=== PATIENT | female | born 1970 | race Native Hawaiian/Other Pacific Islander ===

== ENCOUNTER → 2016-09-10 | Outpatient (REF) | payer OTHER ==
[~2016-09-10] MED LIST: AUGM875T27 PO; CELE20TA OR; CELE40TA OR; COLA50CA3 PO; LISI10TA4 OR; MULTIVIT PO; NEXI20GR PO; OXYC-208 PO; vitamin C
== END ==
LOC: M SFHCLERA 13:34
PROVIDERS: ATTEND Family Medicine
DX: R35.0 Frequency of micturition (principal)

== ENCOUNTER → 2016-09-11 | Outpatient (CLI) | payer OTHER ==
--- NOTE | 2016-09-11 16:24 | REP ---
Urinary tract sonogram: History: Frequent urination, low back pain. Comparison: No comparison study. Findings: Scanning at the level of the urinary bladder shows no abnormality. Pre void bladder volume is calculated at 232 ml. Postvoid residual is 11 ml, 5%. Emptying ureteral jets are observed on color Doppler interrogation of the bladder lumen bilaterally. Renal cortical echogenicity pattern is normal bilaterally and contours are smooth. There is no evidence of hydronephrosis, cyst, mass, or calculus in either kidney. The right kidney measures 10.9 x 6.0 x 4.4 cm. Left renal dimensions are 13.7 x 5.4 x 4.5 cm. Impression: Normal urinary tract sonography. Signed by Jorge Millan MD 09/11/2016 04:15 P
== END ==
LOC: M RAD 15:25
PROVIDERS: ATTEND Family Medicine
DX: R35.0 Frequency of micturition (principal); M54.5 Low back pain; N39.46 Mixed incontinence

== ENCOUNTER → 2016-11-05 | Outpatient (CLI) | payer OTHER | LOC: M LAB 14:34 | PROVIDERS: ATTEND Family Medicine | DX: Z11.4 Encounter for screening for human immunodeficiency virus [HIV] (principal) ==

== ENCOUNTER → 2016-12-10 | Outpatient (REF) | payer OTHER | LOC: M SMT 12:47 | PROVIDERS: ATTEND Nurse Practitioner Women's Health | DX: R30.9 Painful micturition, unspecified (principal) ==

== ENCOUNTER → 2016-12-30 | Outpatient (CLI) | payer OTHER ==
[~2016-12-30] MED LIST changes: +ALBU17IN2 INH; +AVEL1TAB PO; +DIVA500T3; +GABA600T; +HYDR200T3; +METO-346; +MONT10TA2; +OXYB10TA; +TESS100C PO
--- NOTE | 2016-12-30 16:45 | REP ---
Clinical: Acute cough . Comparison: 08/04/2012 . Technique: PA and lateral. Findings: The mediastinum and cardiac silhouette are normal. The lung maya are clear and without acute consolidation, effusion, or pneumothorax. The skeletal structures are intact and normal. Impression: No acute cardiopulmonary process. If the patient remains symptomatic consider chest CT for further investigation. Signed by Hilario Bal MD 12/30/2016 04:37 P
== END ==
LOC: M LRY 15:43
PROVIDERS: ATTEND Physician Assistant
DX: R05 Cough (principal)

== ENCOUNTER 2017-01-03 09:23 | Emergency (ER) | payer OTHER ==
[~2017-01-03] VITALS: Ht 154.9 cm; Wt 52.6 kg
[~2017-01-03 09:23] MED LIST changes: -ALBU17IN2 INH; -AVEL1TAB PO; -DIVA500T3; -GABA600T; -HYDR200T3; -METO-346; -MONT10TA2; -OXYB10TA; -TESS100C PO
[2017-01-03 09:24] VITALS: BP 145/81
[2017-01-03] MEDS ORDERED: MONT10TA2 (09:35)
[2017-01-03] MEDS ORDERED: OXYB10TA (09:35)
[2017-01-03] MEDS ORDERED: HYDR200T3 (09:35)
[2017-01-03] MEDS ORDERED: METO-346 (09:35)
[2017-01-03] MEDS ORDERED: GABA600T (09:35)
[2017-01-03] MEDS ORDERED: DIVA500T3 (09:35)
[2017-01-03] MEDS ORDERED: TESS100C PO (09:55)
[2017-01-03] MEDS ORDERED: AVEL1TAB PO (09:55)
[2017-01-03] MEDS ORDERED: ALBU17IN2 INH (09:55)
[2017-01-03] MEDS ORDERED: ACETAMINOPHEN 325 MG TAB PO ONE (10:00)
[2017-01-03] MEDS ORDERED: BENZONATATE 100 MG CAP PO ONE (10:00)
== END 2017-01-03 10:11 | disposition home or self-care (01) ==
LOC: M ED 09:54
DX: J20.9 Acute bronchitis, unspecified (principal); I10 Essential (primary) hypertension; Z90.89 Acquired absence of other organs; Z88.8 Allergy status to other drugs, medicaments and biological substances

== ENCOUNTER → 2017-02-10 | Outpatient (CLI) | payer OTHER ==
[~2017-02-10] MED LIST changes: +ALBU17IN2 INH; +AVEL1TAB3 PO; +DIVA500T3; +GABA600T; +HYDR200T3; +METO-346; +MONT10TA2; +OXYB10TA; +TESS100C PO
[2017-02-10 06:40] LABS: BASO % 0.2 % (0.0-1.0); EOS # 0.4 K/mm3 (0.0-0.50); LARGE UNSTAINED CELL # 0.1 K/mm3 (0.0-0.4); LARGE UNSTAINED CELL % 1.1 % (0.0-4.0); LYMPH # 2.3 K/mm3 (1.5-4.5); LYMPH % 24.2 % (24.0-44.0); MEAN CORPUSCULAR HEMOGLOBIN 19.1 pg (27.0-33.0); MEAN CORPUSCULAR HGB CONC 28.1 g/dl (32.0-36.5); MEAN CORPUSCULAR VOLUME 67.8 fl (80.0-96.0); MONO # 0.3 K/mm3 (0.0-0.8); MONO % 3.5 % (0.0-5.0); NEUTROPHILS # 6.1 K/mm3 (1.8-7.7); NEUTROPHILS % 66.9 % (36.0-66.0); PLATELET COUNT, AUTOMATED 200 k/mm3 (150-450); RED CELL DISTRIBUTION WIDTH 20.8 % (11.5-14.5); WHITE BLOOD COUNT 9.1 K/mm3 (4.0-10.0)
[2017-02-10 06:41] LABS: ADD MORPHOLOGY? YES
[2017-02-10 09:01] LABS: ANISOCYTOSIS 2+; MICROCYTOSIS 2+; POLYCHROMASIA 1+
== END ==
LOC: M LAB 06:21
PROVIDERS: ATTEND Internal Medicine Medical Oncology
DX: D75.1 Secondary polycythemia (principal)

== ENCOUNTER → 2017-05-03 | Outpatient (CLI) | payer OTHER ==
--- NOTE | 2017-05-04 02:52 | REP ---
Clinical: Anterior knee pain Technique: AP, lateral, bilateral oblique and sunrise views right knee . Findings: The osseous structures and joint spaces are intact and normal. There is no evidence for acute fracture or dislocation. No joint effusion is appreciated. Surrounding soft tissues are unremarkable. No subcutaneous emphysema or radiodense foreign body. Impression: Normal examination. No acute fracture or dislocation. Signed by Hilario Bal MD 05/04/2017 02:43 A
== END ==
LOC: M LRY 12:22
PROVIDERS: ATTEND Family Medicine
DX: M25.562 Pain in left knee (principal)

== ENCOUNTER → 2017-05-05 | Outpatient (CLI) | payer OTHER | LOC: M LAB 08:32 | PROVIDERS: ATTEND Family Medicine | DX: Z13.1 Encounter for screening for diabetes mellitus (principal); Z13.220 Encounter for screening for lipoid disorders ==

== ENCOUNTER 2017-06-15 07:00 | Outpatient (RCR) | payer OTHER | END 2017-07-08 | LOC: M PT 07:00 | PROVIDERS: ATTEND Family Medicine | DX: Z51.89 Encounter for other specified aftercare (principal); M25.562 Pain in left knee ==

== ENCOUNTER → 2017-06-21 | Outpatient (CLI) | payer OTHER ==
[2017-06-21 07:57] LABS: MEAN CORPUSCULAR HEMOGLOBIN 16.4 pg (27.0-33.0); PLATELET COUNT, AUTOMATED 284 10^3/uL (150-450); RED CELL DISTRIBUTION WIDTH 24.1 % (11.5-14.5); WHITE BLOOD COUNT 7.4 10^3/uL (4.0-10.0)
[2017-06-21 08:11] LABS: ADD MANUAL DIFFER YES; DIFF SLIDE NUMBER 124; LEFT SHIFT POS FLAG; PLT DIST POS FLAG; POSITIVE MORPH POS FLAG
[2017-06-21 08:20] LABS: ALBUMIN 3.5 GM/DL (3.2-5.2); ALKALINE PHOSPHATASE 96 U/L (45-117); ALT/SGPT 23 U/L (12-78); ANION GAP 6 MEQ/L (8-16); AST/SGOT 22 U/L (7-37); BILIRUBIN,TOTAL 0.6 MG/DL (0.2-1.0); BLOOD UREA NITROGEN 8 MG/DL (7-18); CALCIUM LEVEL 8.2 MG/DL (8.5-10.1); CARBON DIOXIDE LEVEL 28 MEQ/L (21-32); CHLORIDE LEVEL 105 MEQ/L (98-107); CREATININE FOR GFR 0.63 MG/DL (0.55-1.02); GAMMA GLUTAMYLTRANSPEPTIDASE 23 U/L (5-55); GLOMERULAR FILTRATION RATE > 60.0 (>58); GLUCOSE, FASTING 80 MG/DL (70-105); POTASSIUM SERUM 3.9 MEQ/L (3.5-5.1); SODIUM LEVEL 139 MEQ/L (136-145); TOTAL PROTEIN 7.9 GM/DL (6.4-8.2)
[2017-06-21 09:06] LABS: BANDS 5 % (< 11); EOSINOPHILS 4 % (0-5)
[2017-06-21 09:07] LABS: HYPOCHROMASIA 2+; MICROCYTOSIS 3+; POIKILOCYTOSIS 1+
[2017-06-21 09:09] LABS: POLYCHROMASIA 1+
== END ==
LOC: M LAB 07:29
PROVIDERS: ATTEND Internal Medicine Medical Oncology
DX: D45 Polycythemia vera (principal)

== ENCOUNTER → 2017-07-22 | Outpatient (REF) | payer OTHER ==
[2017-07-22 21:13] LABS: ALBUMIN 4.4 GM/DL (3.2-5.2); ALBUMIN/GLOBULIN RATIO 0.88 (1.00-1.93); ALKALINE PHOSPHATASE 116 U/L (45-117); ALT/SGPT 25 U/L (12-78); ANION GAP 6 MEQ/L (8-16); AST/SGOT 22 U/L (7-37); BILIRUBIN,TOTAL 0.8 MG/DL (0.2-1.0); BLOOD UREA NITROGEN 9 MG/DL (7-18); CALCIUM LEVEL 8.7 MG/DL (8.5-10.1); CARBON DIOXIDE LEVEL 31 MEQ/L (21-32); CHLORIDE LEVEL 101 MEQ/L (98-107); CREATININE FOR GFR 0.55 MG/DL (0.55-1.02); FREE T4 1.18 NG/DL (0.76-1.46); GLOMERULAR FILTRATION RATE > 60.0 (>58); GLUCOSE, FASTING 85 MG/DL (70-105); SODIUM LEVEL 138 MEQ/L (136-145); TOTAL PROTEIN 9.4 GM/DL (6.4-8.2)
== END ==
LOC: M SFHCLERA 14:36
PROVIDERS: ATTEND Family Medicine
DX: R59.0 Localized enlarged lymph nodes (principal)

== ENCOUNTER → 2017-07-26 | Outpatient (CLI) | payer OTHER ==
--- NOTE | 2017-07-27 03:15 | REP ---
Clinical: Suspected adenopathy. Technique: Real time francis scale and color evaluation using linear high frequency transducer. Findings: Directed ultrasound examination in the region of palpable mass in the submandibular level identifies a heterogeneous submandibular gland with anechoic focus measuring 12 x 5 x 9 mm corresponding to the upper pole mass along with few scattered lymph nodes measuring up to 15 mm. Impression: Palpable mass corresponds to anechoic area inseparable from the submandibular gland which may in fact represent an adjacent lymph node. Consider contrast enhanced CT of the neck if symptoms continue greater than 2-3 weeks. Signed by Hilario Bal MD 07/27/2017 12:06 A
== END ==
LOC: M RAD 17:00
PROVIDERS: ATTEND Family Medicine
DX: R59.0 Localized enlarged lymph nodes (principal)

== ENCOUNTER → 2017-08-06 | Outpatient (CLI) | payer OTHER ==
[2017-08-06 16:39] LABS: ALBUMIN 3.9 GM/DL (3.2-5.2); ALKALINE PHOSPHATASE 97 U/L (45-117); ALT/SGPT 24 U/L (12-78); ANION GAP 7 MEQ/L (8-16); AST/SGOT 26 U/L (7-37); BILIRUBIN,TOTAL 0.7 MG/DL (0.2-1.0); BLOOD UREA NITROGEN 9 MG/DL (7-18); CALCIUM LEVEL 9.1 MG/DL (8.5-10.1); CARBON DIOXIDE LEVEL 30 MEQ/L (21-32); CHLORIDE LEVEL 103 MEQ/L (98-107); CREATININE FOR GFR 0.53 MG/DL (0.55-1.02); GLOMERULAR FILTRATION RATE > 60.0 (>58); GLUCOSE, FASTING 77 MG/DL (70-105); POTASSIUM SERUM 4.3 MEQ/L (3.5-5.1); SODIUM LEVEL 140 MEQ/L (136-145); TOTAL PROTEIN 8.8 GM/DL (6.4-8.2)
== END ==
LOC: M LAB 15:38
DX: I10 Essential (primary) hypertension (principal)
CPT/HCPCS: 80053

== ENCOUNTER → 2017-08-10 | Outpatient (CLI) | payer OTHER ==
[~2017-08-10] MED LIST changes: -ALBU17IN2 INH; -AUGM875T27 PO; -AVEL1TAB3 PO; -CELE20TA OR; -CELE40TA OR; -COLA50CA3 PO; -DIVA500T3; -GABA600T; -HYDR200T3; +ISOVUE-370 76% 100ML VIAL (Q9967) As Ordered; -LISI10TA4 OR; -METO-346; -MONT10TA2; -MULTIVIT PO; -NEXI20GR PO; -OXYB10TA; -OXYC-208 PO; -TESS100C PO; -vitamin C
== END ==
LOC: M RAD 07:35
DX: R22.0 Localized swelling, mass and lump, head (principal)
CPT/HCPCS: Q9967

== ENCOUNTER → 2017-08-13 | Outpatient (CLI) | payer OTHER ==
[2017-08-13 09:40] LABS: TOTAL PROTEIN 8.7 GM/DL (6.4-8.2)
[2017-08-16 13:21] LABS: ALBUMIN % 48.6 % (55.8-66.1); ALPHA-1-GLOBULIN % 3.3 % (2.9-4.9); ALPHA-2-GLOBULINS % 6.7 % (7.1-11.8); BETA-1-GLOBULINS % 5.4 % (4.7-7.2)
[2017-08-16 13:22] LABS: ALBUMIN 4.23 GM/DL (3.29-5.55); ALPHA-1-GLOBULINS 0.29 GM/DL (0.17-0.41); ALPHA-2-GLOBULINS 0.58 GM/DL (0.42-0.99); BETA-1-GLOBULINS 0.47 GM/DL (0.28-0.60); BETA-2-GLOBULINS 0.43 GM/DL (0.19-0.55); BETA-2-GLOBULINS % 4.9 % (3.2-6.5); GAMMA GLOBULIN % 31.1 % (11.1-18.8); GAMMA GLOBULINS 2.71 GM/DL (0.65-1.58)
== END ==
LOC: M LAB 08:40
DX: R77.8 Other specified abnormalities of plasma proteins (principal)
CPT/HCPCS: 84165

== ENCOUNTER → 2017-08-30 | Outpatient (CLI) | payer OTHER | LOC: M LAB 18:28 | DX: I10 Essential (primary) hypertension (principal) | CPT/HCPCS: 84244 ==

== ENCOUNTER → 2017-09-01 | Outpatient (REF) | payer OTHER ==
[2017-09-01 18:35] LABS: CREATININE, URINE 58.8 MG/DL; MALB URINE SIEMENS 6.5 MG/L
[2017-09-07 00:07] LABS: DOPAMINE 259 ug/24 hr (0-510); DOPAMINE TOTAL URINE 148 ug/L (Undefined); EPINEPHRINE 4 ug/24 hr (0-20); EPINEPHRINE TOTAL URINE 2 ug/L (Undefined); METANEPHRINE TOTAL URINE 75 ug/L (Undefined); METANEPHRINE URINE 131 ug/24 hr (45-290); NOREPINEPHRINE 23 ug/24 hr (0-135); NOREPINEPHRINE TOTAL URINE 13 ug/L (Undefined); NORMETANEPHRINE TOTAL URINE 138 ug/L (Undefined); NORMETANEPHRINE URINE 242 ug/24 hr (82-500)
== END ==
LOC: M LAB REF 11:22
DX: I10 Essential (primary) hypertension (principal)
CPT/HCPCS: 82384

== ENCOUNTER → 2018-06-09 | Outpatient (REF) | payer OTHER ==
[2018-06-09 19:45] LABS: HEMATOCRIT 54.1 % (36.0-47.0); HEMOGLOBIN 14.1 g/dl (12.0-15.5); MEAN CORPUSCULAR HGB CONC 26.1 g/dl (32.0-36.5); MEAN CORPUSCULAR VOLUME 65.2 fl (80.0-96.0); PLATELET COUNT, AUTOMATED 245 10^3/uL (150-450); WHITE BLOOD COUNT 11.6 10^3/uL (4.0-10.0)
[2018-06-09 19:51] LABS: ADD MANUAL DIFFER YES; DIFF SLIDE NUMBER 297; POSITIVE MORPH POS FLAG
[2018-06-09 20:14] LABS: ATYPICAL LYMPH 16 % (0-5); BANDS 4 % (< 11); EOSINOPHILS 4 % (0-5); LYMPHOCYTES 8 % (16-52); METAMYELOCYTES 1 % (0-0); MONOCYTES 3 % (0-8); NEUTROPHILS 64 % (35-75); NUCLEATED RED BLOOD CELL 1 % (0-0); PLATELET ESTIMATE NORMAL (NORMAL)
[2018-06-09 20:15] LABS: MICROCYTOSIS 2+; POLYCHROMASIA 1+
[2018-06-09 20:24] LABS: ALBUMIN/GLOBULIN RATIO 0.71 (1.00-1.93); ALKALINE PHOSPHATASE 132 U/L (45-117); ALT/SGPT 24 U/L (12-78); ANION GAP 10 MEQ/L (8-16); AST/SGOT 21 U/L (7-37); BILIRUBIN,TOTAL 0.7 MG/DL (0.2-1.0); BLOOD UREA NITROGEN 7 MG/DL (7-18); CALCIUM LEVEL 8.2 MG/DL (8.5-10.1); CARBON DIOXIDE LEVEL 27 MEQ/L (21-32); CHLORIDE LEVEL 100 MEQ/L (98-107); CREATININE FOR GFR 0.68 MG/DL (0.55-1.30); GLOMERULAR FILTRATION RATE > 60.0 (>58); GLUCOSE, FASTING 50 MG/DL (70-100); POTASSIUM SERUM 4.7 MEQ/L (3.5-5.1); SODIUM LEVEL 137 MEQ/L (136-145); TOTAL PROTEIN 9.6 GM/DL (6.4-8.2)
== END ==
LOC: M SFHCLERA 13:58
DX: D45 Polycythemia vera (principal); M35.01 Sjogren syndrome with keratoconjunctivitis

== ENCOUNTER → 2018-06-20 | Outpatient (CLI) | payer OTHER | LOC: M RAD 14:43 | DX: Z12.31 Encounter for screening mammogram for malignant neoplasm of breast (principal) | CPT/HCPCS: 77067 ==

== ENCOUNTER → 2018-06-20 | Outpatient (CLI) | payer OTHER ==
[2018-06-20 17:14] LABS: HEMATOCRIT 54.1 % (36.0-47.0); HEMOGLOBIN 13.8 g/dl (12.0-15.5); MEAN CORPUSCULAR HEMOGLOBIN 16.8 pg (27.0-33.0); MEAN CORPUSCULAR HGB CONC 25.5 g/dl (32.0-36.5); PLATELET COUNT, AUTOMATED 269 10^3/uL (150-450); RED CELL DISTRIBUTION WIDTH 25.5 % (11.5-14.5); WHITE BLOOD COUNT 10.9 10^3/uL (4.0-10.0)
[2018-06-20 17:15] LABS: POSITIVE MORPH POS FLAG
[2018-06-20 17:16] LABS: ADD MANUAL DIFFER YES; DIFF SLIDE NUMBER 253
[2018-06-20 17:18] LABS: ALBUMIN 3.9 GM/DL (3.2-5.2); ALBUMIN/GLOBULIN RATIO 0.76 (1.00-1.93); ALKALINE PHOSPHATASE 119 U/L (45-117); ALT/SGPT 23 U/L (12-78); ANION GAP 7 MEQ/L (8-16); AST/SGOT 24 U/L (7-37); BILIRUBIN,TOTAL 0.8 MG/DL (0.2-1.0); BLOOD UREA NITROGEN 7 MG/DL (7-18); CALCIUM LEVEL 8.7 MG/DL (8.5-10.1); CARBON DIOXIDE LEVEL 30 MEQ/L (21-32); CHLORIDE LEVEL 104 MEQ/L (98-107); CREATININE FOR GFR 0.62 MG/DL (0.55-1.30); FERRITIN 16 NG/ML (8-252); GLOMERULAR FILTRATION RATE > 60.0 (>58); GLUCOSE, FASTING 77 MG/DL (70-100); IRON (FE) 22 UG/DL (50-170); POTASSIUM SERUM 4.1 MEQ/L (3.5-5.1); SODIUM LEVEL 141 MEQ/L (136-145)
[2018-06-20 17:54] LABS: ATYPICAL LYMPH 9 % (0-5); BANDS 9 % (< 11); EOSINOPHILS 1 % (0-5); LYMPHOCYTES 14 % (16-52); MONOCYTES 6 % (0-8); NEUTROPHILS 61 % (35-75); NUCLEATED RED BLOOD CELL 2 % (0-0); PLATELET ESTIMATE NORMAL (NORMAL)
[2018-06-20 17:55] LABS: MICROCYTOSIS 3+; POLYCHROMASIA 1+; TOXIC GRANULATION 1+; TOXIC VACUOLATION 1+
== END ==
LOC: M LRY 11:51
DX: I10 Essential (primary) hypertension (principal); B36.0 Pityriasis versicolor; D45 Polycythemia vera
CPT/HCPCS: 83540

== ENCOUNTER → 2018-07-03 | Outpatient (CLI) | payer OTHER ==
[2018-07-03 13:37] LABS: HEMATOCRIT 43.7 % (36.0-47.0); HEMOGLOBIN 11.6 g/dl (12.0-15.5); MEAN CORPUSCULAR HGB CONC 26.5 g/dl (32.0-36.5); PLATELET COUNT, AUTOMATED 342 10^3/uL (150-450); RED BLOOD COUNT 6.83 10^6/uL (4.00-5.40); RED CELL DISTRIBUTION WIDTH 24.4 % (11.5-14.5); WHITE BLOOD COUNT 10.2 10^3/uL (4.0-10.0)
[2018-07-03 13:42] LABS: ADD MANUAL DIFFER YES; DIFF SLIDE NUMBER 108; POSITIVE MORPH POS FLAG
[2018-07-03 14:39] LABS: ATYPICAL LYMPH 1 % (0-5); BANDS 1 % (< 11); EOSINOPHILS 2 % (0-5); LYMPHOCYTES 29 % (16-52); METAMYELOCYTES 1 % (0-0); MONOCYTES 3 % (0-8); MYELOCYTES 1 % (0-0); NEUTROPHILS 62 % (35-75); PLATELET ESTIMATE NORMAL (NORMAL); TOXIC GRANULATION 1+
[2018-07-03 14:40] LABS: HYPOCHROMASIA 3+; MICROCYTOSIS 3+; POLYCHROMASIA 1+
== END ==
LOC: M LAB 12:55
DX: D75.1 Secondary polycythemia (principal); D47.Z9 Other specified neoplasms of uncertain behavior of lymphoid, hematopoietic and related tissue
CPT/HCPCS: 85025

== ENCOUNTER → 2018-07-11 | Outpatient (REF) | payer OTHER ==
[2018-07-11 17:55] LABS: APPEARANCE, URINE CLEAR (CLEAR); BACTERIA, URINE AUTO NEGATIVE (NEGATIVE); BILIRUBIN, URINE AUTO NEGATIVE (NEGATIVE); BLOOD, URINE BLOOD NEGATIVE (NEGATIVE); COLOR, URINE STRAW (YELLOW); GLUCOSE, URINE (UA) AUTO NEGATIVE (NEGATIVE); KETONE, URINE AUTO TRACE mg/dL (NEGATIVE); LEUKOCYTE ESTERASE, URINE AUTO NEGATIVE (NEGATIVE); NITRITE, URINE AUTO NEGATIVE (NEGATIVE); PROTEIN, URINE AUTO NEGATIVE (NEGATIVE); RBC, URINE AUTO 0 /HPF (0-3); SPECIFIC GRAVITY URINE AUTO 1.004 (1.002-1.035); SQUAMOUS EPITHELIAL CELL UR AU 1 /HPF (0-6); UROBILINOGEN, URINE AUTO 0.2 mg/dL (0.0-2.0); WBC, URINE AUTO 0 /HPF (0-3)
[2018-07-11 18:17] LABS: ALBUMIN 3.8 GM/DL (3.2-5.2); ALBUMIN/GLOBULIN RATIO 0.76 (1.00-1.93); ALKALINE PHOSPHATASE 105 U/L (45-117); ALT/SGPT 20 U/L (12-78); ANION GAP 8 MEQ/L (8-16); AST/SGOT 22 U/L (7-37); BILIRUBIN,TOTAL 0.8 MG/DL (0.2-1.0); BLOOD UREA NITROGEN 6 MG/DL (7-18); CALCIUM LEVEL 8.4 MG/DL (8.5-10.1); CARBON DIOXIDE LEVEL 27 MEQ/L (21-32); CHLORIDE LEVEL 104 MEQ/L (98-107); CREATININE FOR GFR 0.63 MG/DL (0.55-1.30); FREE T4 1.28 NG/DL (0.76-1.46); GLOMERULAR FILTRATION RATE > 60.0 (>58); GLUCOSE, FASTING 59 MG/DL (70-100); POTASSIUM SERUM 4.3 MEQ/L (3.5-5.1); SODIUM LEVEL 139 MEQ/L (136-145); TOTAL PROTEIN 8.8 GM/DL (6.4-8.2)
[2018-07-11 18:54] LABS: ADD MANUAL DIFFER YES; DIFF SLIDE NUMBER 326; HEMATOCRIT 47.3 % (36.0-47.0); HEMOGLOBIN 12.4 g/dl (12.0-15.5); MEAN CORPUSCULAR HEMOGLOBIN 16.9 pg (27.0-33.0); MEAN CORPUSCULAR HGB CONC 26.2 g/dl (32.0-36.5); MEAN CORPUSCULAR VOLUME 64.6 fl (80.0-96.0); PLATELET COUNT, AUTOMATED 312 10^3/uL (150-450); POSITIVE MORPH POS FLAG; RED BLOOD COUNT 7.32 10^6/uL (4.00-5.40); RED CELL DISTRIBUTION WIDTH 24.7 % (11.5-14.5); WHITE BLOOD COUNT 9.8 10^3/uL (4.0-10.0)
[2018-07-11 18:57] LABS: ATYPICAL LYMPH 8 % (0-5); BANDS 14 % (< 11); EOSINOPHILS 3 % (0-5); LYMPHOCYTES 25 % (16-52); METAMYELOCYTES 1 % (0-0); MONOCYTES 4 % (0-8); NEUTROPHILS 45 % (35-75)
[2018-07-11 18:58] LABS: PLATELET ESTIMATE NORMAL (NORMAL); POLYCHROMASIA 1+
[2018-07-11 18:59] LABS: MICROCYTOSIS 2+; TOXIC GRANULATION 1+
== END ==
LOC: M SFHCLERA 13:47
DX: R23.2 Flushing (principal); M35.01 Sjogren syndrome with keratoconjunctivitis
CPT/HCPCS: 84443